=== PATIENT | female | born 1950 | race Caucasian/White ===

== ENCOUNTER 2018-07-15 08:26 | Day surgery (SDC) | payer MEDICARE, BC ==
[2018-07-15] MEDS ORDERED: PROPOFOL 500 MG/50 ML EMU IV ONE (09:30)
[2018-07-15] MEDS ORDERED: PROPOFOL 10 MG/ML 200 MG/20 ML EMU IV ONE (09:30)
[2018-07-15 10:01] VITALS: BP 147/88; PULSE 69; RESP 18; TEMP 97.7; O2SAT 94
== END 2018-07-15 10:25 | disposition home or self-care (01) | DRG 951 ==
LOC: SURG 08:26
PROVIDERS: ATTEND Surgery
DX: Z12.11 Encounter for screening for malignant neoplasm of colon (principal); K63.5 Polyp of colon; D12.2 Benign neoplasm of ascending colon
CPT/HCPCS: J2704